=== PATIENT | male | born 1975 | race Caucasian/White ===

== ENCOUNTER 2019-10-27 10:32 | Emergency (ER) | payer MEDICAID ==
[~2019-10-27] VITALS: Ht 180.3 cm; Wt 88.5 kg
[2019-10-27 10:38] VITALS: Ht 180.3 cm; Wt 88.5 kg
[2019-10-27 13:12] VITALS: BP 128/90
== END 2019-10-27 13:12 | disposition home or self-care (01) ==
LOC: ED 10:32
DX: S82.841A Displaced bimalleolar fracture of right lower leg, initial encounter for closed fracture (principal); F17.210 Nicotine dependence, cigarettes, uncomplicated; W18.31XA Fall on same level due to stepping on an object, initial encounter; Y93.89 Activity, other specified; Y92.89 Other specified places as the place of occurrence of the external cause; Y99.8 Other external cause status
CPT/HCPCS: 99406